=== PATIENT | female | born 1965 | race American Indian/Alaskan Native ===

== ENCOUNTER 2018-01-01 13:19 | Outpatient (CLI) | payer OTHER ==
--- NOTE | 2018-01-01 14:34 | Mammography Report ---
BILATERAL MAMMOGRAM: FINDINGS: The breast tissue is heterogeneously dense, which could obscure detection of small masses (approximately 50%-75% glandular). No mass, distortion, suspicious calcification, or skin change is seen. CAD was utilized. IMPRESSION: Negative mammogram. There is no mammographic evidence of malignancy. RECOMMENDATION: Follow-up per ACS guidelines. This patient's prior exam is being requested for comparison. Followup report will be made available if obtained. BI-RADS CATEGORY: 1 = Negative ACR BI-RADS MAMMOGRAPHIC CODES: 0 = Needs additional imaging evaluation; 1 = Negative; 2 = Benign; 3 = Probably benign; 4 = Suspicious; 5 = Malignant; 6 = Known biopsy-proven malignancy COMMENT: 1. Dense breast tissue, i.e., adenosis, fibrocystic changes, etc., may obscure an underlying neoplasm. 2. Approximately 10% of cancers are not detected with mammography. 3. A negative mammography report should not delay biopsy if a clinically suspicious mass is present. COMMENT: Patient follow-up letters are generated in [facility].
--- NOTE | 2018-01-01 21:20 | XRay Report ---
FINAL REPORT EXAM: XR CHEST ROUTINE 2V HISTORY: ACUTE BRONCHITIS TECHNIQUE: 2 views of the chest. PRIORS: None. FINDINGS: The cardiomediastinal silhouette appears normal. There is a left mid lung linear parenchymal opacity consistent with subsegmental atelectasis or parenchymal scar. The right lung is clear. The bones and soft tissues are unremarkable. IMPRESSION: Left mid lung linear parenchymal opacity consistent with subsegmental atelectasis or parenchymal scar.
== END 2018-01-01 13:20 | disposition home or self-care (01) ==
LOC: MAMMO 13:19
PROVIDERS: ATTEND Family Medicine
DX: Z12.31 Encounter for screening mammogram for malignant neoplasm of breast (principal); J20.9 Acute bronchitis, unspecified
CPT/HCPCS: 71046; 77067